=== PATIENT | male | born 1975 | race Caucasian/White ===

== ENCOUNTER 2021-07-02 16:49 | Emergency (ER) | payer OTHER, BC, SELFPAY ==
[2021-07-02 16:49] VITALS: BP 177/92; PULSE 66; RESP 16; TEMP 36.4; O2SAT 98; BMI 35.2
--- NOTE | 2021-07-02 18:53 | EX.ED.UPPERE ---
HPI History of Present Illness Chief Complaint: Upper Extremity Injury Informant: patient Narrative Narrative: Patient is a [id number] male presenting with left pinky finger injury. Patient is last night at work he was trying to tear saran wrap when his finger got caught and bent and awkward angle. He had associated pain and swelling. He went to urgent care today where they did an x-ray and sent him to the emergency room. Patient came in with his x-ray. He does have some tingling at the distal aspect of his finger. 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 Denies any other injuries or complaints. Does have decreased range of motion with associated swelling of the left pinky finger. PFSH PFSH Medical History CAD (coronary artery disease) CHF (congestive heart failure) HLD (hyperlipidemia) HTN (hypertension) Home Medications aspirin 81 mg PO DAILY@0800 12/27/14 [History Last Taken 03/19/15] carvedilol 25 mg PO BID 12/27/14 [History Last Taken 03/20/15] clopidogrel 75 mg PO DAILY 12/27/14 [History Last Taken 03/20/15] lisinopril 10 mg PO DAILY 12/27/14 [History Last Taken 03/19/15] hydrochlorothiazide 25 mg PO DAILY 09/20/15 [History Last Taken Unknown] amoxicillin 500 mg PO TID 10/01/16 [History Last Taken Unknown] atorvastatin 80 mg PO QHS 10/01/16 [History Last Taken Unknown] hydrocodone-acetaminophen 1 tab PO Q6H PRN 3 Days #12 tab 07/02/21 [Rx Last Taken Unknown] Allergy/AdvReac Type Severity Reaction Status Date / Time Iodine and Iodide Containing Allergy Unknown Verified 10/01/16 17:48 Produc shellfish derived Allergy Anaphylaxis Verified 07/02/21 16:51 nickel AdvReac Rash Verified 10/01/16 17:48 Social History Smoking Status: Never smoker ROS ROS ED Constitutional Constitutional ED: Denies chills or fever(s) Eyes Eyes: Denies change in vision Cardiovascular Cardiovascular: Denies chest pain Respiratory/Chest Respiratory/Chest: Denies dyspnea Musculoskeletal Musculoskeletal: Reports other Details: left pinky finger pain Integumentary Denies Abrasions or rash Neurologic Neurologic: Reports paresthesias; Denies headache(s) or weakness Psychiatric Psychiatric: Denies depression EXAM Physical Exam Const Vital Signs: 07/02/21 16:49 Temperature 97.6 F L Temperature Source Temporal Pulse Rate 66 Respiratory Rate 16 Blood Pressure 177/92 H Blood Pressure Mean 120 Pulse Ox 98 Oxygen Delivery Method Room Air Positive well nourished and well developed General Appearance ED: well developed HEENT normocephalic and atraumatic Neck full ROM and supple Resp normal respiratory effort Cardio Cardio Narrative: Brisk capillary refill, 2+ radial pulses Extremity Extremity Narrative: Swelling with associated tenderness palpation of the left pinky finger. Decreased range of motion with flexion and extension. No mallet finger deformity appreciated. Normal range of motion at the MCP. No bony tenderness of the hand or wrist. Sensation intact to light touch of the distal finger. Neuro oriented x3 and CN's II-XII intact bilaterally Sensorium / Orientation: alert Motor Exam: muscle tone normal throughout; Negative for general weakness Psych mental status grossly normal Skin Lesions: no lesions Rashes: no rashes MDM MDM MDM Narrative Medical decision making narrative: Patient presents with left pinky finger pain and injury. X-ray from urgent care reviewed by myself which shows minimally displaced proximal second phalanges fracture with involvement of the inferior articular surface. Patient is placed in an aluminum foam splint with waldo tape and given dose of [place] in the ER. Discussed with orthopedics on-call and patient will follow up with Dr. Real. Workmen's Compensation paperwork is filled out. Is given a short course of [place] for home. Patient is counseled on signs and symptoms requiring return to the emergency room. Patient verbalizes agreement and understand this plan. Patient discharged home in stable and improved condition. Discharge Plan Triage Chief Complaint: Upper Extremity Injury ED Provider: Pippa Arvizu Dx/Rx/DC Orders Clinical Impression: Closed fracture of middle phalanx of left little finger Instructions: ED Fracture, Finger, Closed Prescriptions: New hydrocodone-acetaminophen 5-325 mg tablet 1 tab PO Q6H PRN (Reason: pain) 3 Days Qty: 12 RF: 0 No Action carvedilol 12.5 MG tablet 25 mg PO BID RF: 0 clopidogrel 75 MG tablet 75 mg PO DAILY RF: 0 lisinopril 10 MG tablet 10 mg PO DAILY RF: 0 aspirin 81 MG tablet,chewable 81 mg PO DAILY@0800 RF: 0 hydrochlorothiazide 25 MG tablet 25 mg PO DAILY RF: 0 atorvastatin 80 MG tablet 80 mg PO QHS RF: 0 amoxicillin 875 MG tablet 500 mg PO TID RF: 0 Primary Care Provider: Hunter Montejo Referrals: Hunter Montejo MD [Primary Care Provider] - Diego Real MD [STAFF PHYSICIAN] - 3-5 Days Disposition Disposition: Home, Self Care
[2021-07-02] MEDS: HYDROcodone Bitartrate/Apap 5/325 Tablet PO (19:10)
== END 2021-07-02 19:11 | disposition home or self-care (01) ==
PROVIDERS: Emergency Provider Emergency Medicine; PCP Family Medicine
DX: S62.627A Displaced fracture of middle phalanx of left little finger, initial encounter for closed fracture (principal); I25.10 Atherosclerotic heart disease of native coronary artery without angina pectoris; I11.0 Hypertensive heart disease with heart failure; I50.9 Heart failure, unspecified; E78.5 Hyperlipidemia, unspecified; Z79.02 Long term (current) use of antithrombotics/antiplatelets; Z79.899 Other long term (current) drug therapy; X50.1XXA Overexertion from prolonged static or awkward postures, initial encounter; Y93.89 Activity, other specified; Y92.89 Other specified places as the place of occurrence of the external cause; Y99.0 Civilian activity done for income or pay
CPT/HCPCS: 99284